=== PATIENT | male | born 1955 | race African-American/Black ===

== ENCOUNTER 2023-03-06 04:43 | Day surgery (SDC) | payer OTHER ==
[2023-01-05 10:02] VITALS: BMI 33.6
[2023-03-06 09:51] VITALS: TEMP 98
[2023-03-06 10:14] VITALS: PULSE 83
[2023-03-06 10:19] VITALS: BP 137/84; RESP 19
== END 2023-03-06 10:19 | disposition home or self-care (01) ==
LOC: JASU-ENDO 04:43
PROVIDERS: ATTEND Internal Medicine Gastroenterology
PROC: 0DBN8ZX Excision of Sigmoid Colon, Via Natural or Artificial Opening Endoscopic, Diagnostic (ICD-10-PCS; principal; 2023-03-06 09:30)
DX: Z12.11 Encounter for screening for malignant neoplasm of colon (principal); D12.7 Benign neoplasm of rectosigmoid junction; K64.8 Other hemorrhoids; K57.30 Diverticulosis of large intestine without perforation or abscess without bleeding; Z86.010 Personal history of colon polyps; I10 Essential (primary) hypertension; E11.9 Type 2 diabetes mellitus without complications; Z79.84 Long term (current) use of oral hypoglycemic drugs
CPT/HCPCS: 82962; 88305-TC